=== PATIENT | female | born 1975 | race Caucasian/White ===

== ENCOUNTER 2022-08-15 09:36 | Outpatient (CLI) | payer OTHER | END 2022-08-15 09:37 | disposition home or self-care (01) | LOC: ULT 09:36 | PROVIDERS: ATTEND Internal Medicine Rheumatology | DX: R79.9 Abnormal finding of blood chemistry, unspecified (principal) | CPT/HCPCS: 76705 ==

== ENCOUNTER 2024-01-16 07:59 | Outpatient (CLI) | payer OTHER | END 2024-01-16 08:00 | disposition home or self-care (01) | LOC: BICMAMMO 07:59 | PROVIDERS: ATTEND Nurse Practitioner Family | DX: Z12.31 Encounter for screening mammogram for malignant neoplasm of breast (principal) | CPT/HCPCS: 77067 ==